=== PATIENT | female | born 1990 | race Caucasian/White ===

== ENCOUNTER 2016-10-22 13:18 | Emergency (ER) | payer BC ==
[~2016-10-22] VITALS: Ht 165.1 cm; Wt 132.9 kg
[2016-10-22 14:54] LABS: BASO # 0.1 x10^3/uL (0.0-0.2); BASO % 1 % (0-3); EOS % 5 % (0-3); HEMATOCRIT 45.7 % (36.0-47.0); LYMPH # 4.1 x10^3/uL (1.0-4.8); LYMPH % 25 % (24-48); MEAN CORPUSCULAR HEMOGLOBIN 29 pg (25-35); MEAN CORPUSCULAR HGB CONC 33 g/dL (31-37); MEAN CORPUSCULAR VOLUME 89 fL (79-100); MONO % 5 % (0-9); NEUT % 65 % (31-73); PLATELET COUNT 402 x10^3/uL (140-400); RED BLOOD COUNT 5.17 x10^6/uL (3.50-5.40); RED CELL DISTRIBUTION WIDTH 14.5 % (11.5-14.5); WHITE BLOOD COUNT 16.8 x10^3/uL (4.0-11.0)
[2016-10-22 14:57] LABS: BILIRUBIN,URINE NEGATIVE (NEG); GLUCOSE,URINE NEGATIVE (NEG); NITRITE,URINE NEGATIVE (NEG); PH,URINE 7.5; PROTEIN,URINE NEGATIVE (NEG-TRACE)
[2016-10-22] MEDS ORDERED: IV NORMAL SALINE 1000ML BAG 1,000 ML IV SCH (15:00)
[2016-10-22 15:05] LABS: BACTERIA,URINE FEW /HPF (0-FEW); RBC,URINE 0 /HPF (0-2); SQUAMOUS EPITHELIAL CELL,UR FEW /LPF
[2016-10-22 15:07] LABS: CALCIUM 9.2 mg/dL (8.5-10.1); CREATININE 0.9 mg/dL (0.6-1.0); GFR 74.6; POTASSIUM 3.7 mmol/L (3.5-5.1)
[2016-10-22 15:14] LABS: ALBUMIN 3.6 g/dL (3.4-5.0); ALBUMIN/GLOBULIN RATIO 0.9 (1.0-1.7); TOTAL BILIRUBIN 0.4 mg/dL (0.2-1.0); TOTAL PROTEIN 7.7 g/dL (6.4-8.2)
--- NOTE | 2016-10-22 15:38 | RAD ---
Acute abdomen series History: Generalized abdominal pain since previous night. Comparison: 02/24/2008. Findings: Frontal view of the chest. Cardiac silhouette appears within normal limits for size. No pneumoperitoneum or pneumothorax is identified. No acute infiltrate is seen. Bilateral nipple jewelry is seen. Supine and upright views of the abdomen. No dilated loops of bowel are seen. Liver shadow may be enlarged. Impression: 1. No acute abnormality identified in the chest or abdomen. 2. Possible hepatomegaly.
--- NOTE | 2016-10-22 16:23 | RAD ---
Right upper quadrant abdominal ultrasound, 10/22/2016: History: Right upper quadrant pain There are echogenic foci in the gallbladder fossa. There is associated posterior acoustic shadowing. The appearance suggests numerous gallstones. The shadowing obscures the margins of the gallbladder. No bile duct dilatation is seen. The liver is enlarged measuring 22 cm in length. It demonstrates increased echogenicity most compatible with fatty change. No hepatic mass is evident. The visualized portions of the pancreas and right kidney are unremarkable. IMPRESSION: 1. Cholelithiasis. 2. Hepatomegaly with generalized increased echogenicity compatible with hepatic steatosis.
--- NOTE | 2016-10-22 16:55 | PHYS DOC ---
Past Medical History Past Medical History: No Pertinent History Past Surgical History: No Surgical History Additional Information: 1 PPD Alcohol Use: Occasionally Drug Use: None Adult General Chief Complaint Chief Complaint: ABDOMINAL PAIN HPI HPI Patient is a 26 year old female who presents with abdominal pain. Patient has diffuse abdominal pain in both her upper quadrant and lower abdomen. She describes a squeezing, constant pain that is worse with walking or when coughing. Pain started last night after she had drank a whole bottle of magnesium citrate for constipation. She did have a bowel movement today. She denies any nausea or vomiting. No urinary symptoms. No vaginal bleeding or discharge. She has not taken any pain medication for symptoms. She does have a prior similar episode last April, however she was not seen for it and it resolved spontaneously. Patient currently on her menstrual cycle. Review of Systems Review of Systems Constitutional: Denies fever or chills Eyes: Denies change in visual acuity or eye pain HENT: Denies nasal congestion or sore throat Respiratory: Denies cough or shortness of breath Cardiovascular: Denies chest pain GI: Diffuse abdominal pain. Denies nausea, vomiting, bloody stools or diarrhea : Denies dysuria or hematuria Musculoskeletal: B/l low back pain Integument: Denies rash or skin lesions Neurologic: Denies headache, focal weakness or sensory changes Current Medications Current Medications Current Medications Medications (Trade) Dose Ordered Sig/Juan F Start Time Stop Time Status Last Admin Dose Admin Sodium Chloride (Iv Sodium Chloride 0.9% 1000ml Bag) 1,000 ml @ 1,000 mls/hr Q1H 10/22/16 15:00 10/22/16 15:59 DC 10/22/16 14:53 1,000 MLS/HR Allergies Allergies Allergies Coded Allergies Type Severity Reaction Last Updated Verified amoxicillin Allergy Intermediate HIVES 10/22/16 Yes latex Allergy Intermediate RASH 10/22/16 Yes Physical Exam Physical Exam Constitutional: Well developed, well nourished, no acute distress, non-toxic appearance HENT: Normocephalic, atraumatic, bilateral external ears normal Eyes: EOMI, conjunctiva normal, no discharge Neck: Normal range of motion, no stridor Cardiovascular: Heart rate normal, regular rhythm, no murmur Lungs & Thorax: Bilateral breath sounds clear to auscultation Abdomen: Bowel sounds normal, soft, non-distended, mild general TTP without guarding or rebound Skin: Warm, dry, no erythema, no rash Back: No tenderness, no skin lesion or deformity Extremities: No obvious deformity, no edema Neurologic: Alert and oriented X 3, no gross deficits noted Current Patient Data Vital Signs Vital Signs Date Time Temp Pulse Resp B/P Pulse Ox O2 Delivery O2 Flow Rate FiO2 10/22/16 16:58 78 103/58 95 Room Air 10/22/16 13:45 96.6 18 96.6 Lab Values Laboratory Tests Test 10/22/16 13:01 10/22/16 13:55 POC Urine HCG, Qualitative Hcg negative (Negative) White Blood Count 16.8x10^3/uL (4.0-11.0) H Red Blood Count 5.17x10^6/uL (3.50-5.40) Hemoglobin 15.0g/dL (12.0-15.5) Hematocrit 45.7% (36.0-47.0) Mean Corpuscular Volume 89fL (79-100) Mean Corpuscular Hemoglobin 29pg (25-35) Mean Corpuscular Hemoglobin Concent 33g/dL (31-37) Red Cell Distribution Width 14.5% (11.5-14.5) Platelet Count 402x10^3/uL (140-400) H Neutrophils (%) (Auto) 65% (31-73) Lymphocytes (%) (Auto) 25% (24-48) Monocytes (%) (Auto) 5% (0-9) Eosinophils (%) (Auto) 5% (0-3) H Basophils (%) (Auto) 1% (0-3) Neutrophils # (Auto) 10.9x10^3uL (1.8-7.7) H Lymphocytes # (Auto) 4.1x10^3/uL (1.0-4.8) Monocytes # (Auto) 0.8x10^3/uL (0.0-1.1) Eosinophils # (Auto) 0.9x10^3/uL (0.0-0.7) H Basophils # (Auto) 0.1x10^3/uL (0.0-0.2) Urine Collection Type Unknown Urine Color Yellow Urine Clarity Clear Urine pH 7.5 Urine Specific Rice 1.025 Urine Protein Negativemg/dL (NEG-TRACE) Urine Glucose (UA) Negativemg/dL (NEG) Urine Ketones (Stick) Negativemg/dL (NEG) Urine Blood Large (NEG) Urine Nitrite Negative (NEG) Urine Bilirubin Negative (NEG) Urine Urobilinogen Dipstick 1.0mg/dL (0.2 mg/dL) Urine Leukocyte Esterase Small (NEG) Urine RBC 0/HPF (0-2) Urine WBC 5-10/HPF (0-4) Urine Squamous Epithelial Cells Few/LPF Urine Transitional Epithelial Cells Few/LPF Urine Bacteria Few/HPF (0-FEW) Urine Mucus Mod/LPF Sodium Level 143mmol/L (136-145) Potassium Level 3.7mmol/L (3.5-5.1) Chloride Level 106mmol/L (98-107) Carbon Dioxide Level 27mmol/L (21-32) Anion Gap 10 (6-14) Blood Urea Nitrogen 11mg/dL (7-20) Creatinine 0.9mg/dL (0.6-1.0) Estimated GFR (Cockcroft-Gault) 74.6 BUN/Creatinine Ratio 12 (6-20) Glucose Level 106mg/dL (70-99) H Calcium Level 9.2mg/dL (8.5-10.1) Total Bilirubin 0.4mg/dL (0.2-1.0) Aspartate Amino Transferase (AST) 12U/L (15-37) L Alanine Aminotransferase (ALT) 34U/L (14-59) Alkaline Phosphatase 90U/L (46-116) Total Protein 7.7g/dL (6.4-8.2) Albumin 3.6g/dL (3.4-5.0) Albumin/Globulin Ratio 0.9 (1.0-1.7) L Lipase 285U/L (73-393) Laboratory Tests 10/22/16 13:55 Laboratory Tests 10/22/16 13:55 EKG EKG [] Radiology/Procedures Radiology/Procedures Acute abdominal series: Impression: 1. No acute abnormality identified in the chest or abdomen. 2. Possible hepatomegaly. RUQ US: IMPRESSION: 1. Cholelithiasis. 2. Hepatomegaly with generalized increased echogenicity compatible with hepatic steatosis. Course & Med Decision Making Course & Med Decision Making Pertinent Labs and Imaging studies reviewed. (See chart for details) Patient is 26-year-old female who presents with general abdominal pain. Possibly due to intestinal spasm for constipation. Will obtain acute abdominal series to rule out obstructive pattern as well as right upper quadrant ultrasound as patient did have some tenderness in the right upper quadrant. Labs and UA ordered. IV fluid bolus ordered. Patient declines need for pain medication at this time. Imaging results as above. Labs notable for leukocytosis of unknown etiology; however patient does not have fever or tachycardia and I have little concern for serious infectious process based on physical exam. Discussed results with patient, who is feeling better at this time. I discussed the need to follow-up with a primary care physician and have provided her with a list of local physicians. Discharged with instructions for close outpatient follow-up as well as strict return precautions. Dragon Disclaimer Dragon Disclaimer This electronic medical record was generated, in whole or in part, using a voice recognition dictation system. Departure Departure Impression: Primary Impression: Generalized abdominal pain Additional Impression: Constipation Disposition: 01 HOME, SELF-CARE Condition: STABLE Referrals: NO PCP (PCP) Patient Instructions: Abdominal Pain (Nonspecific) Additional Instructions: Thank you for allowing us to provide care today in the Emergency Department. You can use over the counter medication for any further pain as we discussed. Follow the directions on the label. Schedule a follow up appointment with a primary care doctor using the provided list. Return promptly to the Emergency Department if you develop any new or concerning symptoms. Problem Qualifiers JAYSHREE TOBIN MD Oct 22, 2016 16:55
[2016-10-22 16:58] VITALS: BP 103/58
== END 2016-10-22 17:07 | disposition home or self-care (01) ==
LOC: ER 13:18
DX: R10.84 Generalized abdominal pain (principal); R10.11 Right upper quadrant pain; K59.00 Constipation, unspecified; F17.200 Nicotine dependence, unspecified, uncomplicated; Z88.1 Allergy status to other antibiotic agents; Z91.040 Latex allergy status
CPT/HCPCS: 36415; 74022; 76705; 80053; 81001; 81025; 83690; 85027; 87086; 96360; 99285; J7030